=== PATIENT | female | born 1975 | race Caucasian/White ===

== ENCOUNTER 2019-10-16 10:52 | Inpatient (IN) | payer MEDICAID ==
[~2019-10-16] VITALS: Ht 165.1 cm; Wt 112.7 kg
[2019-10-16] MEDS ORDERED: HCTZ25 MG PO (11:02)
[2019-10-16 11:39] LABS: BASOPHILS 0.5 % (0-2); EOSINOPHILS 1.3 % (0-7); HEMATOCRIT 44.6 % (36.0-48.0); HEMOGLOBIN 15.8 g/dL (12-16); MCH 32.8 pg (26.0-34.0); MCHC 35.4 g/dL (31.0-37.0); MCV 92.5 fL (80.0-100.0); MEAN PLATELET VOLUME 9.9 fL (7.4-10.4); NEUTROPHILS 72.2 % (40-80); PLATELET COUNT 246 10x3/uL (130-400); RBC 4.82 10x6/uL (4.00-5.40); RDW 14.1 % (11.5-14.5); WBC 15.8 10x3/uL (4.8-10.8)
[2019-10-16 11:51] LABS: ANION GAP 21.3 mmol/L (8-16); CALCIUM 9.4 mg/dL (8.5-10.1); CARBON DIOXIDE 25.8 mmol/L (21.0-32.0); CREATININE - SERUM 0.9 mg/dL (0.6-1.3); POTASSIUM - SERUM 3.1 mmol/L (3.5-5.1)
[2019-10-16 11:58] LABS: ALBUMIN 3.1 g/dL (3.4-5.0); BILIRUBIN - TOTAL 0.52 mg/dL (0.2-1.3); PROTEIN - SERUM 8.3 g/dL (6.4-8.2)
--- NOTE | 2019-10-16 14:07 | NUR ---
PT REPORTS SHE "CLOSED A DOOR ON HER BREAST" AND SUBSEQUENTLY DEVELOPED SWELLING, PAIN, AND AN AREA OF "SEVERE TENDERNESS" SHE FURTHER REPORTS SUBJECTIVE FEVER, DIZZINESS, AND GENERAL MALAISE.
--- NOTE | 2019-10-16 14:08 | NUR ---
ASSESSMENT OF SITE IS POSITIVE FOR ERYTHEMA, SWELLING, WARMTH TO THE TOUCH, MEASUREMENT AT ITS WIDEST POINT IS 10CM X 11CM
[2019-10-16 14:43] VITALS: BP 136/73; BMI 38.1
--- NOTE | 2019-10-16 15:10 | NUR ---
NEW PATIENT ADMIT FROM ER VIA WC ACCOMPANIED BY STAFF AND SON. PATIENT IS AWAKE, ALERT AND ORIENTED X 4. PATIENT IS AMBULATORY. ASSESSMENT COMPLETED. RT BREAST AT NIPPLE WITH ACUTE REDNESS, TENDERNESS AND HARD TO PALPATION. AREA OF REDNESS CIRCULAR WITH DIAMETER OF 11 CM. PATIENT ALSO HAD BS IN ER OF 327. PATIENT NOW HAS NEW DIAGNOSIS NEW ONSET DIABETES. GAVE PATIENT ICE WATER REQUESTED AND GAVE HER WARM PACK TO APPLY TO BREAST. ORIENTED PATIENT TO ROOM, BATHROOM AND CALL LIGHT. WILL CONTINUE WITH PLAN OF CARE.
[2019-10-16 16:13] VITALS: BP 143/95
--- NOTE | 2019-10-16 17:16 | NUR ---
PATIENT SITTING UP IN BED WITH WARM PACK ON BREAST. BS CHECKED AND INSULIN GIVEN. PATIENT EATING SUPPER. DENIES ANY NEEDS AT THIS TIME. WILL CONTINUE TO MONITOR. SR UPX 2 BED IN LOW POSITION AND CALL LIGHT IN REACH.
--- NOTE | 2019-10-16 19:15 | NUR ---
RECEIVED REPORT, WILL ASSUME CARE OF PT, ASKING FOR A WARM PACK, (PROVIDED), DENIES ANY OTHER NEEDS AT THIS TIME, BED IS LOW, SRX2, CALL LIGHT IN REACH, WILL CONTINUE PLAN OF CARE
[2019-10-16 20:30] VITALS: BP 135/86
--- NOTE | 2019-10-16 20:39 | NUR ---
COMPLAINS OF R. BREAST PAIN, GAVE MORPHINE ORDERED
[2019-10-17] VITALS (10 sets, daily range): BP systolic 108–156; BP diastolic 61–93; Ht 165.1 cm; Wt 112.7 kg
--- NOTE | 2019-10-17 03:52 | NUR ---
REAL ESTATE REP IN ROOM ASSISTING WITH HIBCLEASE BATH/LINEN CHANGE
--- NOTE | 2019-10-17 05:15 | NUR ---
I have reviewed this patient and I concur with the Shift Assessment completed by the Licensed Practical Nurse today this shift.
[2019-10-17 05:46] LABS: CARBON DIOXIDE 27.1 mmol/L (21.0-32.0); CHLORIDE - SERUM 93 mmol/L (98-107); MAGNESIUM - SERUM 1.9 mg/dL (1.8-2.4); SODIUM 132 mmol/L (136-145); UREA NITROGEN 8 mg/dL (7-18)
[2019-10-17 05:48] LABS: BASOPHILS 0.6 % (0-2); EOSINOPHILS 2.8 % (0-7); HEMATOCRIT 46.1 % (36.0-48.0); HEMOGLOBIN 15.2 g/dL (12-16); IMMATURE GRANULOCYTES 0.6 % (0-5); MCH 31.2 pg (26.0-34.0); MCV 94.7 fL (80.0-100.0); MEAN PLATELET VOLUME 10.8 fL (7.4-10.4); MONOCYTES 8.8 % (2-11); NEUTROPHILS 71.2 % (40-80); PLATELET COUNT 230 10x3/uL (130-400); RBC 4.87 10x6/uL (4.00-5.40); RDW 14.4 % (11.5-14.5); WBC 12.7 10x3/uL (4.8-10.8)
[2019-10-17 05:50] LABS: CALC OSMOLALITY 270 mosm/kg (275-300); CREATININE - SERUM 0.6 mg/dL (0.6-1.3); GLUCOSE 237 mg/dL (74-106); eGFR NON AFRICAN AMERICAN > 90 mL/min (90-120)
[2019-10-17 05:51] LABS: POTASSIUM - SERUM 2.9 mmol/L (3.5-5.1)
--- NOTE | 2019-10-17 09:07 | NUR ---
PT TAKEN FOR SX VIA BED.
--- NOTE | 2019-10-17 10:15 | NUR ---
RECEIVED REPORT FROM MARGARET WALKER. SHE STATES SURGERY DONE BY DR. WOODSON ON RIGHT BREAST. THE RIGHT BREAST WAS DRAINED AND PACKED AND COVERED WITH A DRESSING. SHE STATES DR. WOODSON STATED THERE WAS A LOT OF PUS. SHE ALSO STATES PT IS IN A LOT OF PAIN AND SHE GAVE PT ONE DOSE OF FENTANYL BUT PT WILL NEED A DOSE OF PAIN MEDICINE WHEN SHE RETURNS TO THE FLOOR. SHE STATES PT IS CURRENTLY ONM 4L OF O2 AND IS BEING WEANED DOWN BACK TO ROOM AIR.
--- NOTE | 2019-10-17 10:16 | NUR ---
I have reviewed this patient and I concur with the Shift Assessment completed by the Licensed Practical Nurse today this shift.
--- NOTE | 2019-10-17 10:25 | NUR ---
PT RETURNED FROM SX VIA BED. ALERT AND ORIENTED. ON O2 AT 4L VIA NC. O2 SAT 97% WEANED O2 DOWN TO 1.5L AND O2 SAT IS 95%. will wean to room air. right breast dressing is c/d/i. pt having a pain level of 10 in right breast. will administer pain medication as ordred. vs stable. hsuband at bedside. pt has no further needs at this time. bed low. cl in reach.
--- NOTE | 2019-10-17 12:27 | NUR ---
PT TEARFUL AND C/O THROBBING PAIN LEVEL OF 10 IN RIGHT BREAST UNRELIEVED BY MORPHINE AND HYDROCODONE. DR. CHINTAN MATHUR.
--- NOTE | 2019-10-17 12:29 | NUR ---
OR NURSE CALLED AND STAATED DR. WOODSON IS PREOPING A PT AN HE WILL HAVE TO CALL MY BACK.
--- NOTE | 2019-10-17 13:59 | NUR ---
TPT STATES HER PAIN LEVEL IS GOING DOWN WITH DIALUDID MUSICAL INSTRUMENT MECHANIC PUMP AND IS AT A 6 RIGHT NOW. WILL ROLANDAUE TO MONITOR.
--- NOTE | 2019-10-17 15:15 | NUR ---
JULES MONGE STATES TO ME TO GIVE PT ZOFRAN IV THAT SHE HAS ORDRED. PT STATED TO HER SHE IS NAUSEOUS. I VERBALIZED UNDERSTANDING.
--- NOTE | 2019-10-17 19:16 | NUR ---
RECEIVED REPORT, WILL ASSUME CARE OF PT, PT UP IN RESTROOM, DENIES ANY NEEDS AT THIS TIME, WILL CONTINUE PLAN OF CARE
--- NOTE | 2019-10-17 19:29 | NUR ---
UA COLLECTED AND TAKEN TO LAB
[2019-10-17 19:37] LABS: APPEARANCE CLOUDY (CLEAR); COLOR DK YELLOW (YELLOW); SPECIFIC GRAVITY 1.015 (1.005-1.020)
[2019-10-17 19:38] LABS: BILIRUBIN NEGATIVE (NEGATIVE); GLUCOSE 1000 mg/dL (NEGATIVE); KETONE LARGE mg/dL (NEGATIVE); NITRITE NEGATIVE (NEGATIVE); PROTEIN TRACE mg/dL (NEGATIVE); UROBILINOGEN NORMAL (NORMAL)
[2019-10-17 19:40] LABS: BACTERIA FEW /hpf (NEGATIVE); EPITHELIAL CELLS 0-5 /hpf (0-5); RED CELLS - URINE 0-5 /hpf (0-5); WHITE CELLS - URINE 0-5 /hpf (NEGATIVE)
--- NOTE | 2019-10-17 20:49 | NUR ---
K+3.1, WILL FOLLOW EP, AT 2129, PT WANTS TO WAIT UNTIL SHE CAN HAVE ZOAN
[2019-10-18 04:30] VITALS: BP 114/77
[2019-10-18 05:41] LABS: CALCIUM 7.2 mg/dL (8.5-10.1); CARBON DIOXIDE 26.2 mmol/L (21.0-32.0); CHLORIDE - SERUM 98 mmol/L (98-107); CREATININE - SERUM 0.5 mg/dL (0.6-1.3); POTASSIUM - SERUM 3.5 mmol/L (3.5-5.1); SODIUM 134 mmol/L (136-145); eGFR NON AFRICAN AMERICAN > 90 mL/min (90-120)
[2019-10-18 05:43] LABS: BASOPHILS 0.5 % (0-2); EOSINOPHILS 4.2 % (0-7); HEMATOCRIT 43.4 % (36.0-48.0); HEMOGLOBIN 14.1 g/dL (12-16); LYMPHOCYTES 16.8 % (15-50); MCH 31.3 pg (26.0-34.0); MCHC 32.5 g/dL (31.0-37.0); MCV 96.2 fL (80.0-100.0); MEAN PLATELET VOLUME 10.1 fL (7.4-10.4); MONOCYTES 9.3 % (2-11); NEUTROPHILS 68.2 % (40-80); PLATELET COUNT 214 10x3/uL (130-400); RBC 4.51 10x6/uL (4.00-5.40); RDW 14.6 % (11.5-14.5)
[2019-10-18 05:47] LABS: CALC OSMOLALITY 268 mosm/kg (275-300); GLUCOSE 171 mg/dL (74-106); UREA NITROGEN 4 mg/dL (7-18)
--- NOTE | 2019-10-18 05:54 | NUR ---
I have reviewed this patient and I concur with the Shift Assessment completed by the Licensed Practical Nurse today this shift.
--- NOTE | 2019-10-18 07:31 | NUR ---
PT LYING IN BED. EYES CLOSED. CHEST RISING AND FALLING. BED LOW. CL IN REACH. WILL COTNINUE TO MONITOR.
[2019-10-18 07:59] VITALS: BP 117/81
--- NOTE | 2019-10-18 08:03 | NUR ---
I have reviewed this patient and I concur with the Shift Assessment completed by the Licensed Practical Nurse today this shift.
[2019-10-18 12:13] VITALS: BP 121/74
[2019-10-18 17:09] VITALS: BP 144/87
--- NOTE | 2019-10-18 19:20 | NUR ---
RECEIVED REPORT, WILL ASSUME CARE OF PT, SITTING UP IN BED, DENIES ANY NEEDS AT THIS TIME, BED IS LOW, SRX2, CALL LIGHT IN REACH, AT BEDSIDE, WILL CONTINUE PLAN OF CARE
[2019-10-18 20:00] VITALS: BP 116/68
[2019-10-19] VITALS: BP 117/84
[2019-10-19 04:00] VITALS: BP 126/89
--- NOTE | 2019-10-19 04:28 | NUR ---
I have reviewed this patient and I concur with the Shift Assessment completed by the Licensed Practical Nurse today this shift.
[2019-10-19 05:46] LABS: BASOPHILS 0.4 % (0-2); EOSINOPHILS 5.1 % (0-7); HEMATOCRIT 43.8 % (36.0-48.0); HEMOGLOBIN 14.1 g/dL (12-16); IMMATURE GRANULOCYTES 0.8 % (0-5); LYMPHOCYTES 16.6 % (15-50); MCH 31.3 pg (26.0-34.0); MCHC 32.2 g/dL (31.0-37.0); MCV 97.1 fL (80.0-100.0); MEAN PLATELET VOLUME 10.1 fL (7.4-10.4); MONOCYTES 9.9 % (2-11); NEUTROPHILS 67.2 % (40-80); PLATELET COUNT 229 10x3/uL (130-400); RBC 4.51 10x6/uL (4.00-5.40); RDW 14.8 % (11.5-14.5); WBC 9.6 10x3/uL (4.8-10.8)
[2019-10-19 06:09] LABS: CALC OSMOLALITY 278 mosm/kg (275-300); CALCIUM 7.7 mg/dL (8.5-10.1); CARBON DIOXIDE 29.7 mmol/L (21.0-32.0); CHLORIDE - SERUM 102 mmol/L (98-107); CREATININE - SERUM 0.6 mg/dL (0.6-1.3); GLUCOSE 166 mg/dL (74-106); POTASSIUM - SERUM 3.5 mmol/L (3.5-5.1); SODIUM 139 mmol/L (136-145); UREA NITROGEN 4 mg/dL (7-18); eGFR NON AFRICAN AMERICAN > 90 mL/min (90-120)
--- NOTE | 2019-10-19 07:41 | NUR ---
ALERT AND ORIENTED.RIGHT FA WITH NS AT 50. DILAUDID HELMET HAT PUNCHER AT 0.2/10/4 HOUR LOCK OUT. UP AB KEYA. DRSG TO RIGHT BREAST CLEAN AND DRY. DENIES ANY NEEDS. SR UP WITH CALL LIGHT IN REACH. WILL MONITOR
[2019-10-19 08:00] VITALS: BP 111/79
[2019-10-19] MEDS ORDERED: FLAGYL500 MG PO (12:03)
[2019-10-19] MEDS ORDERED: GLUCOPHAGE500 MG PO (12:04)
[2019-10-19] MEDS ORDERED: SMZ-TMP DS 800-1 TAB PO (12:04)
[2019-10-19] MEDS ORDERED: ACETAMINOPHEN500 M1 PO (12:07)
--- NOTE | 2019-10-19 12:35 | NUR ---
CALLED JULES FARFAN APN RE IF TO CONTINUE [facility]. PER JULES TO CONTINUE. WHEN CONTINUE CONFLICT AROSE. CALLED JULES BACK AND WAS ADVISED TO CONTINUE, BENEFITS OUTWEIGH RISKS.
--- NOTE | 2019-10-19 13:42 | MORECARE ---
CASE MANAGEMENT DISCHARGE SUMMARY PATIENT: GISELL BUSH UNIT: [id number] ADM DATE: 10/16/19 AGE: 44 : 71 SEX: F ROOM/BED: D.4686 AUTHOR: BRADEN RYDER PHYSICIAN: REFERRING PHYSICIAN: JAYME BRADY MD DATE OF SERVICE: 10/19/19 Discharge Plan Patient Name: GISELL BUSH Facility: [facility]:[place] : 1975 Planned Disposition: Home with Home Health Anticipated Discharge Date: 10/19/19 Discharge Date: Expected LOS: 3 Initial Reviewer: [email or web address] Initial Review Date: 10/19/2019 Generated: 10/19/19 2:42 pm DCPIA - Discharge Planning Initial Assessment Updated by [email or web address]: Shaun Lim on 10/19/19 1:42 pm * Is the patient Alert and Oriented? Yes * How many steps to enter\exit or inside your home? * PCP DR. STOCKTON AT [facility] * Pharmacy [facility] * Preadmission Environment Home with Family * ADLs Independent * Equipment None * Other Equipment [facility] - PREFERRED MEDICAL EQUIPMENT PROVIDER * List name and contact numbers for known caregivers / representatives who currently or will assist patient after discharge: CHACORTA BUSH, SPOUSE, * Verbal permission to speak to the caregivers and representatives has been obtained from the patient. Yes * Community resources currently utilized None * Please name any agencies selected above. NONE * Additional services required to return to the preadmission environment? Yes * Can the patient safely return to the preadmission environment? Yes * Has this patient been hospitalized within the prior 30 days at any hospital? No External Providers External Provider: [facility] Next Contact Date: 10/19/2019 Service Request Date: Service Type: Resolution: Reviewer: Comments: Patient Name: GISELL BUSH Page [id number] at 1342 All edits/amendments must be made on the electronic document DICTATION DATE: 10/19/19 1342 INVESTMENT ASSOCIATE: ROSA 10/19/19 1342 RPT#: [id number] DC DATE: STATUS: ADM IN [facility] [address] [place] [address] END OF REPORT
--- NOTE | 2019-10-19 13:59 | MORECARE ---
CASE MANAGEMENT DISCHARGE SUMMARY PATIENT: GISELL BUSH UNIT: [id number] ADM DATE: 10/16/19 AGE: 44 : 71 SEX: F ROOM/BED: D.7509 AUTHOR: BRTINI,DOC PHYSICIAN: REFERRING PHYSICIAN: JAYME BRADY MD DATE OF SERVICE: 10/19/19 Discharge Plan Patient Name: GISELL BUSH Facility: [facility]:[place] : 1975 Planned Disposition: Home with Home Health Anticipated Discharge Date: 10/19/19 Discharge Date: Expected LOS: 3 Initial Reviewer: [email or web address] Initial Review Date: 10/19/2019 Generated: 10/19/19 2:59 pm Comments DCP- Discharge Planning Updated by [email or web address]: Shaun Lim on 10/19/19 12:[address] Patient Name: GISELL BUSH Admission Status: ER Accout number: [id number] Admission Date: 10-16-2019 : 1975 Admission Diagnosis: Attending: JAYME BRADY Current LOS: 3 Anticipated DC Date: 10-19-2019 Planned Disposition: Home with Home Health Primary Insurance: MEDICAID [place] PENDING PLANNED EXTERNAL PROVIDER: [facility] Discharge Planning Comments: CM MET WITH PT AND SPOUSE IN ROOM TO DISCUSS DISCHARGE PLANNING AND NEEDS. GISELL BUSH provided verbal consent to discuss current and ongoing needs with/in the presence of: SPOUSE, CHACORTA. PT REPORTS LIVING AT HOME IN [address] [facility], INDEPENDENTLY WITH HER SOIYSE. PT HAS NO MEDICAL EQUIPMENT AND NO OUTSIDE SERVICES ASSISTING IN THE HOME. CM DISCUSSED AVAILABILITY OF HOME HEALTH, REHAB SERVICES AND MEDICAL EQUIPMENT. 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 PT REPORTS HER SPOUISE WILL PICK HER UP FOR DISCHARGE HOME. CM PROVIDED [employer] DISCOUNT CARD FOR POSSIBLE MEDICATION ASSISTANCE, PT STATES SHE USES [facility] DUE TO LOW COST PRESCRIPTIONS THERE. CM PROVIDED AND DISCUSSED LISTING FOR HOME HEALTH PROVIDERS, PT HAS NOT CHOICE ON PROVIDERS. CHOICE COMPLETED. DENISE OSWALD CONTACTED RAY OF [facility] WHO WILL SCREEN FOR HOME HEALTH ADMISSION MEDICAID PENDING. CM FAXED REFERRAL TO [facility] AT [phone]. FLIGHT SERVICE SPECIALIST NURSE NOTIFIED. PHYSICAL ADDRESS FOR DISCHARGE IS [address] [place] [address]. CM WAITING ADMISSION DETERMINATION FROM [facility]. Commercial Loan Administrator: Shaun Lim DCPIA - Discharge Planning Initial Assessment Updated by [email or web address]: Shaun Lmi on 10/19/19 1:42 pm * Is the patient Alert and Oriented? Yes * How many steps to enter\exit or inside your home? * PCP DR. STOCKTON AT [facility] * Pharmacy [facility] [address] * Preadmission Environment Home with Family * ADLs Independent * Equipment None * Other Equipment [facility] - PREFERRED MEDICAL EQUIPMENT PROVIDER * List name and contact numbers for known caregivers / representatives who currently or will assist patient after discharge: CHACORTA BUSH, SPOUSE, * Verbal permission to speak to the caregivers and representatives has been obtained from the patient. Yes * Community resources currently utilized None * Please name any agencies selected above. NONE * Additional services required to return to the preadmission environment? Yes * Can the patient safely return to the preadmission environment? Yes * Has this patient been hospitalized within the prior 30 days at any hospital? No Last DP export: 10/19/19 12:42 pm Patient Name: GISELL BUSH Page 50122 at 1359 All edits/amendments must be made on the electronic document DICTATION DATE: 10/19/19 1355 DERMATOLOGY TEACHER: ROSA 10/19/19 1359 RPT#: [id number] DC DATE: STATUS: ADM IN [facility] [address] [place] [address] END OF REPORT
--- NOTE | 2019-10-19 14:08 | NUR ---
PT DCD. FLU SHOT GIVEN.IV DCD WITH TIP INTACT. TO PRIVATE CAR PER WHEELCHAIR
--- NOTE | 2019-10-20 08:02 | MORECARE ---
CASE MANAGEMENT DISCHARGE SUMMARY PATIENT: GISELL BUSH UNIT: [id number] ADM DATE: 10/16/19 AGE: 44 : 71 SEX: F ROOM/BED: D.1010 AUTHOR: BRITNIDOC PHYSICIAN: REFERRING PHYSICIAN: JAYME BRADY MD DATE OF SERVICE: 10/20/19 Discharge Plan Patient Name: GISELL BUSH Facility: [facility]:[place] : 1975 Planned Disposition: Home with Home Health Anticipated Discharge Date: 10/19/19 Discharge Date: 10/19/2019 Expected LOS: 3 Initial Reviewer: [email or web address] Initial Review Date: 10/19/2019 Generated: 10/20/19 9:02 am Comments DCP- Discharge Planning Updated by [id number]: Shaun Maza on 10/20/19 7:[address] Patient Name: GISELL BUSH Admission Status: ER Accout number: [id number] Admission Date: 10-16-2019 : 1975 Admission Diagnosis: Attending: JAYME BRADY Current LOS: 3 Anticipated DC Date: 10-19-2019 Planned Disposition: Home with Home Health Primary Insurance: MEDICAID [place] PENDING PLANNED EXTERNAL PROVIDER: [facility] Discharge Planning Comments: CM MET WITH PT AND SPOUSE IN ROOM TO DISCUSS DISCHARGE PLANNING AND NEEDS. GISELL BUSH provided verbal consent to discuss current and ongoing needs with/in the presence of: SPOUSE, CHACORTA. PT REPORTS LIVING AT HOME IN [address] [facility], INDEPENDENTLY WITH HER SOIYSE. PT HAS NO MEDICAL EQUIPMENT AND NO OUTSIDE SERVICES ASSISTING IN THE HOME. CM DISCUSSED AVAILABILITY OF HOME HEALTH, REHAB SERVICES AND MEDICAL EQUIPMENT. 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 PT REPORTS HER SPOUISE WILL PICK HER UP FOR DISCHARGE HOME. CM PROVIDED [employer] DISCOUNT CARD FOR POSSIBLE MEDICATION ASSISTANCE, PT STATES SHE USES [facility] DUE TO LOW COST PRESCRIPTIONS THERE. CM PROVIDED AND DISCUSSED LISTING FOR HOME HEALTH PROVIDERS, PT HAS NOT CHOICE ON PROVIDERS. CHOICE COMPLETED. DENISE OSWALD CONTACTED RAY OF [facility] WHO WILL SCREEN FOR HOME HEALTH ADMISSION MEDICAID PENDING. CM FAXED REFERRAL TO [facility] AT [phone]. BLISTER PACK OPERATOR NURSE NOTIFIED. PHYSICAL ADDRESS FOR DISCHARGE IS [address] [place] [address], [facility], [place]. CM WAITING ADMISSION DETERMINATION FROM [facility]. Digital Marketing Project Manager: Shaun Maza Appended by Shaun Maza on 10/20/2019 8:01 GRANITE POLISHER: LATE ENTRY FROM 10-19-18, 1600 HOURS: CM RECEIVED CALL FROM [place] OF [facility], THEY HAVE ACCEPTED PT AND WILL ADMIT TOMORROW. PT WAS NOTIFIED OF [facility] HOME HEALTH PROVIDER PRIOR TO LEAVING HOSPITAL TO RETURN HOME WITH SPOUSE. SHAUN MAZA, CASE MANAGEMENT DCPIA - Discharge Planning Initial Assessment Updated by [email or web address]: Shaun Maza on 10/19/19 1:42 pm * Is the patient Alert and Oriented? Yes * How many steps to enter\exit or inside your home? * PCP DR. STOCKTON AT [facility] * Pharmacy [facility] ON [address] * Preadmission Environment Home with Family * ADLs Independent * Equipment None * Other Equipment [facility] - PREFERRED MEDICAL EQUIPMENT PROVIDER * List name and contact numbers for known caregivers / representatives who currently or will assist patient after discharge: CHACORTA BUSH, SPOUSE, * Verbal permission to speak to the caregivers and representatives has been obtained from the patient. Yes * Community resources currently utilized None * Please name any agencies selected above. NONE * Additional services required to return to the preadmission environment? Yes * Can the patient safely return to the preadmission environment? Yes * Has this patient been hospitalized within the prior 30 days at any hospital? No Last DP export: 10/19/19 12:59 pm Patient Name: GISELL BUSH Page [id number] at 0802 All edits/amendments must be made on the electronic document DICTATION DATE: 10/20/19 0802 AGRISCIENCE TEACHER: ROSA 10/20/19 08 RPT#: [id number] DC DATE:10/19/19 STATUS: DIS IN [facility] [address] [place] [address] END OF REPORT
--- NOTE | 2019-10-20 10:22 | OP ---
PATIENT NAME: GISELL BUSH MEDICAL RECORD: [id number] :[birth year] LOCATION:D.M2 D.2127 ADMISSION DATE:10/16/19 SURGEON: DAYDAY WOODSON MD DATE OF OPERATION: 10/17/2019 PREOPERATIVE DIAGNOSIS: Right breast abscess. POSTOPERATIVE DIAGNOSIS: Right breast abscess. PROCEDURE: Incision and drainage of right breast abscess with packing. SURGEON: Dayday Woodson MD SALVAGE GRINDER: None. BLOOD LOSS: Less than 25 cc. ANESTHESIA: General. COMPLICATIONS: None. The risks, possible complications, and alternatives to the procedure were explained to the patient. She elects to proceed. The discussion specifically included, but was not limited to, bleeding requiring an emergency reoperation, infection, and the fact that the incision would leave a scar. OPERATIVE COURSE: The patient was conveyed to the operating room electively on 10/17/2019. General anesthesia was induced by the anesthesia staff. The right breast was sterilely prepped and draped. A curvilinear incision was accomplished on the right breast at about 7-9 o'clock. Sharp dissection was carried down through the skin and subcutaneous tissues. I entered the abscess cavity bluntly. A large amount of purulent material was identified. This was cultured. I irrigated with normal saline. I then performed curettage within the abscess cavity. I then flushed the abscess cavity with hydrogen peroxide. I then packed the wound with a 6-inch Kerlix soaked in quarter strength Dakin's. A sterile dressing was applied. The patient was then extubated and conveyed to post-anesthesia care unit where she was in stable condition. Later in the day, I heard that she was crying and was in a great deal of pain. I asked the nursing staff to switch her to a Dilaudid OSTEOLOGY TEACHER, which improved things quite a bit. TRANSINT:[id number] Voice Confirmation ID: [id number] DOCUMENT ID: [id number] DAYDAY WOODSON MD at 1022 CC: [id number] DICTATION DATE: 10/17/19 1644 CLOTH INSPECTOR: 10/17/19 2019 DIS IN 10/19/19 [place] [address]
== END 2019-10-19 14:18 | disposition home health service (06) | DRG 584 ==
LOC: D.ER 10:52 → D.M2 12:50
PROVIDERS: Family Medicine; Surgery; ADMIT Family Medicine; ATTEND Family Medicine
PROC: 0H9T0ZZ Drainage of Right Breast, Open Approach (ICD-10-PCS; principal; 2019-10-17 09:15)
DX: N61.1 Abscess of the breast and nipple (principal); F17.213 Nicotine dependence, cigarettes, with withdrawal; E87.1 Hypo-osmolality and hyponatremia; E11.9 Type 2 diabetes mellitus without complications; E87.6 Hypokalemia; A59.00 Urogenital trichomoniasis, unspecified; B95.5 Unspecified streptococcus as the cause of diseases classified elsewhere

== ENCOUNTER → 2020-04-22 08:32 | Outpatient (CLI) | payer OTHER ==
[2019-10-17 09:36] VITALS: BMI 38.1
[~2020-04-22 08:32] MED LIST: ACETAMINOPHEN500 M1 PO; FLAGYL500 MG PO; GLUCOPHAGE500 MG PO; HCTZ25 MG PO; SMZ-TMP DS 800-1 TAB PO
[2020-04-22 09:32] LABS: EOSINOPHILS 2.7 % (0-7); HEMATOCRIT 46.4 % (36.0-48.0); HEMOGLOBIN 15.3 g/dL (12-16); IMMATURE GRANULOCYTES 0.4 % (0-5); MCH 30.6 pg (26.0-34.0); MCV 92.8 fL (80.0-100.0); MEAN PLATELET VOLUME 10.7 fL (7.4-10.4); MONOCYTES 8.7 % (2-11); NEUTROPHILS 68.2 % (40-80); PLATELET COUNT 226 10x3/uL (130-400); RDW 15.4 % (11.5-14.5); WBC 10.1 10x3/uL (4.8-10.8)
[2020-04-22 09:39] LABS: APTT 32.1 SECONDS (22.8-39.4); INR 0.89 (0.85-1.17)
[2020-04-22 09:45] LABS: % SATURATION 11 % (15-55); IRON 50 ug/dl (35-150); TOTAL IRON BIND CAPACITY 418 ug/dl (260-445); UNSAT IRON BIND CAPACITY 368 ug/dl (150-375)
[2020-04-22 10:11] LABS: ALBUMIN 3.4 g/dL (3.4-5.0); ANION GAP 11.8 mmol/L (8-16); BILIRUBIN - DIRECT 0.17 mg/dL (0.00-0.30); BILIRUBIN - INDIRECT 0.34 mg/dL (0.00-1.00); BILIRUBIN - TOTAL 0.51 mg/dL (0.2-1.3); CALCIUM 8.9 mg/dL (8.5-10.1); CARBON DIOXIDE 30.3 mmol/L (21.0-32.0); CHOL - HDL RATIO 6.4 ratio (2.3-4.1); CREATININE - SERUM 0.9 mg/dL (0.6-1.3); LDL-HDL RATIO 4.3 ratio (1.5-3.5); POTASSIUM - SERUM 3.1 mmol/L (3.5-5.1); PROTEIN - SERUM 7.9 g/dL (6.4-8.2)
[2020-04-23 06:10] LABS: HAPTOGLOBIN 278 mg/dL (42-296)
[2020-04-23 08:12] LABS: ALPHA FETOPROTEIN -(TUMOR MRK) 2.6 ng/mL (0.0-8.3)
[2020-04-23 13:10] LABS: ANA REFLEX - DIRECT Negative (Negative)
[2020-04-25 14:07] LABS: MITOCHONDRIAL ANTIBODY <20.0 Units (0.0-20.0); SMOOTH MUSCLE ABS (ACTIN) 12 Units (0-19)
== END | disposition home or self-care (01) ==
LOC: D.US 08:30
PROVIDERS: ATTEND Internal Medicine Gastroenterology
DX: R74.0 Nonspecific elevation of levels of transaminase and lactic acid dehydrogenase [LDH] (principal); R10.13 Epigastric pain